=== PATIENT | female | born 1940 | race Caucasian/White ===

== ENCOUNTER 2024-11-28 08:54 | Inpatient (IN) | payer OTHER ==
[2024-11-28] MEDS ORDERED: ALBUTEROL SO4 2.5/IPRATROPIUM 0.5 INH SOL 3 ML VIAL.NEB. NEB SCH (09:15)
[2024-11-28 10:12] LABS: ABSOLUTE IMMATURE GRANULOCYTES 0.04 x10^3/uL (0.0-0.031); BASOPHILS # 0.05 x10^3/uL (0.01-0.08); EOSINOPHIL % 0.1 % (0.7-5.8); EOSINOPHILS # 0.01 x10^3/uL (0.04-0.36); HEMOGLOBIN 14.4 g/dL (11.2-15.7); MEAN CELL VOLUME 96.4 fl (79.4-94.8); MEAN PLT VOLUME 10.9 fl (9.4-12.3); MONOCYTE # 1.07 x10^3/uL (0.24-0.86); MONOCYTE % 12.6 % (4.7-12.5); PLATELET COUNT # 237 x10^3/uL (182-369); RDW 14.7 % (12.5-17.0)
[2024-11-28] MEDS: ACETAMINOPHEN 1000 MG/100 ML BAG IVPB ONE (10:40)
[2024-11-28] MEDS: SODIUM CHLORIDE 0.9% 500 ML INFUS.BAG IV ONE (10:40)
[2024-11-28 10:50] LABS: ALBUMIN 3.4 g/dl (3.4-5.0); BLOOD UREA NITROGEN 13.2 mg/dL (7-18); CREATININE 0.7 mg/dL (0.55-1.3); EPI CELLS >36 /uL (0-25.1); HYALINE CASTS 18 /uL (0-3.1); POTASSIUM 4.6 mmol/L (3.5-5.1); URINE APPEARANCE TURBID; URINE BACTERIA 728 /uL (0-1359); URINE BILIRUBIN NEGATIVE (NEGATIVE); URINE COLOR YELLOW; URINE GLUCOSE (UA) NEGATIVE (NEGATIVE); URINE KETONE TRACE (NEGATIVE); URINE LEUK ESTERASE NEGATIVE (NEGATIVE); URINE NITRITE NEGATIVE (NEGATIVE); URINE PROTEIN 1+ (NEGATIVE); URINE RBC 38 /uL (0-23.9)
[2024-11-28 10:51] LABS: BILIRUBIN,TOTAL 0.3 mg/dL (0.2-1); TOT PROT 7.1 g/dl (6.4-8.2)
[2024-11-28 11:10] LABS: INR 1.12 (0.83-1.09); PROTHROMBIN TIME (PATIENT) 12.3 SEC (9.7-13.0)
[2024-11-28] MEDS ORDERED: ALBUTEROL SO4 2.5/IPRATROPIUM 0.5 INH SOL 3 ML VIAL.NEB. NEB ONE (12:39)
[2024-11-28] MEDS ORDERED: OSELTAMIVIR PHOSPHATE 75 MG CAPSULE ONE (12:39)
[2024-11-28] MEDS: ALBUTEROL SO4 2.5/IPRATROPIUM 0.5 INH SOL 3 ML VIAL.NEB. NEB SCH (12:46)
[2024-11-28] MEDS: OSELTAMIVIR PHOSPHATE 75 MG CAPSULE PO ONE (12:46)
[2024-11-28 13:48] LABS: URINE WBC 169.5 /uL (0-25.8)
[2024-11-28] MEDS: predniSONE 20 MG TABLET (UD) PO ONE (18:15)
[2024-11-28] MEDS: AZITHROMYCIN 250 MG TABLET PO SCH (18:15)
[2024-11-28 21:39] VITALS: RESP 18
[2024-11-28] MEDS: ATORVASTATIN CA 10 MG TABLET (FP) PO SCH (21:47)
[2024-11-28] MEDS: OSELTAMIVIR PHOSPHATE 75 MG CAPSULE PO SCH (21:47)
[2024-11-28] MEDS: MEMANTINE HCL 10 MG TABLET (FP) PO SCH (21:47)
[2024-11-28] MEDS: DONEPEZIL HCL 10 MG TABLET (FP) PO SCH (21:47)
[2024-11-29 07:47] VITALS: BP 154/71; PULSE 68; TEMP 98.4
[2024-11-29] MEDS: predniSONE 20 MG TABLET (UD) PO SCH (11:06)
[2024-11-29] MEDS: ENOXAPARIN NA (PORCINE) 40 MG/0.4 ML DISP.SYRIN SQ SCH (11:06)
[2024-11-29 15:47] VITALS: BMI 43.2
[2024-11-29] MEDS ORDERED: AMOX TR/POT CLAV 875MG/125MG TABLETS (FP) PO SCH (17:30)
== END 2024-11-29 13:32 | disposition home or self-care (01) | DRG 153 ==
LOC: JER 08:54 → JERBED 12:24 → J8W 15:38
PROVIDERS: ADMIT Internal Medicine; ATTEND Nurse Practitioner Acute Care
DX: J11.1 Influenza due to unidentified influenza virus with other respiratory manifestations (principal); Z68.41 Body mass index [BMI] 40.0-44.9, adult; F03.90 Unspecified dementia, unspecified severity, without behavioral disturbance, psychotic disturbance, mood disturbance, and anxiety; N32.9 Bladder disorder, unspecified; E66.01 Morbid (severe) obesity due to excess calories; R09.02 Hypoxemia; E78.5 Hyperlipidemia, unspecified; Z88.0 Allergy status to penicillin
CPT/HCPCS: 0241U-QW; 36415; 70450-TC; 71045-TC-FY; 80053; 81003; 83605; 84484; 85025; 85610; 85730; 86850; 86900; 86901; 87040; 87086; 87186; 93005; 93010; 93306-TC; 97116-GP; 97161-GP; 99285-25; J0131